=== PATIENT | male | born 1940 | race Caucasian/White ===

== ENCOUNTER 2016-11-25 13:20 | Inpatient (IN) | payer MEDICARE ==
[~2016-11-25] VITALS: Ht 180.3 cm; Wt 89.5 kg
[2016-11-25 16:51] LABS: HEMOGLOBIN 9.2 gm/dl (14.0-17.5); RED BLOOD COUNT 3.11 M/UL (4.20-5.50); WHITE BLOOD COUNT 9.6 K/UL (4.5-11.0)
[2016-11-25 17:17] LABS: BUN/CREATININE RATIO 13 (0-10)
[2016-11-26] MEDS ORDERED: ASPIRIN EC81 MG PO (04:06)
[2016-11-27 05:54] LABS: HEMOGLOBIN 8.8 gm/dl (14.0-17.5); WHITE BLOOD COUNT 8.8 K/UL (4.5-11.0)
[2016-11-29 04:34] LABS: HEMOGLOBIN 8.3 gm/dl (14.0-17.5); RED BLOOD COUNT 2.84 M/UL (4.20-5.50); WHITE BLOOD COUNT 9.6 K/UL (4.5-11.0)
[2016-11-29 13:49] LABS: HEMOGLOBIN 8.9 gm/dl (14.0-17.5)
[2016-11-29 19:15] LABS: HEMOGLOBIN 7.9 gm/dl (14.0-17.5)
[2016-11-30 01:11] LABS: HEMOGLOBIN 7.9 gm/dl (14.0-17.5)
[2016-11-30 06:44] LABS: HEMOGLOBIN 8.1 gm/dl (14.0-17.5); RED BLOOD COUNT 2.76 M/UL (4.20-5.50); WHITE BLOOD COUNT 7.6 K/UL (4.5-11.0)
[2016-12-01 04:40] LABS: HEMOGLOBIN 7.5 gm/dl (14.0-17.5); RED BLOOD COUNT 2.53 M/UL (4.20-5.50); WHITE BLOOD COUNT 8.4 K/UL (4.5-11.0)
[2016-12-01 05:12] LABS: BUN/CREATININE RATIO 31 (0-10)
[2016-12-02 04:26] LABS: HEMOGLOBIN 7.5 gm/dl (14.0-17.5); RED BLOOD COUNT 2.5 M/UL (4.20-5.50)
[2016-12-03 05:27] LABS: HEMOGLOBIN 7.1 gm/dl (14.0-17.5); RED BLOOD COUNT 2.44 M/UL (4.20-5.50); WHITE BLOOD COUNT 8.6 K/UL (4.5-11.0)
[2016-12-03 23:59] LABS: HEMOGLOBIN 7.8 gm/dl (14.0-17.5)
[2016-12-04 06:21] LABS: HEMOGLOBIN 8.3 gm/dl (14.0-17.5); RED BLOOD COUNT 2.8 M/UL (4.20-5.50); WHITE BLOOD COUNT 9.2 K/UL (4.5-11.0)
[2016-12-05 05:36] LABS: HEMOGLOBIN 8.5 gm/dl (14.0-17.5); RED BLOOD COUNT 2.85 M/UL (4.20-5.50); WHITE BLOOD COUNT 9.7 K/UL (4.5-11.0)
== END 2016-12-06 17:45 | DRG 292 ==
LOC: ER1 13:20 → ZEROF 20:26 → MED SURG 4 20:26 → M/S 20:26 → MED SURG 4 22:20 → PROG CARE 11-29 16:24 → M/S 12-02 18:18
PROVIDERS: Emergency Medicine; Family Medicine; Hospitalist; ADMIT Internal Medicine
DX: I50.23 Acute on chronic systolic (congestive) heart failure (principal); N17.9 Acute kidney failure, unspecified; K92.2 Gastrointestinal hemorrhage, unspecified; L97.319 Non-pressure chronic ulcer of right ankle with unspecified severity; D62 Acute posthemorrhagic anemia; I48.2 Chronic atrial fibrillation; I48.0 Paroxysmal atrial fibrillation; I87.8 Other specified disorders of veins; L89.322 Pressure ulcer of left buttock, stage 2; L89.312 Pressure ulcer of right buttock, stage 2; E11.9 Type 2 diabetes mellitus without complications; E78.5 Hyperlipidemia, unspecified; I27.2 Other secondary pulmonary hypertension; I07.1 Rheumatic tricuspid insufficiency; C44.42 Squamous cell carcinoma of skin of scalp and neck; C44.329 Squamous cell carcinoma of skin of other parts of face; D50.9 Iron deficiency anemia, unspecified; R53.1 Weakness; H91.90 Unspecified hearing loss, unspecified ear; R94.39 Abnormal result of other cardiovascular function study; Z60.9 Problem related to social environment, unspecified; Z79.82 Long term (current) use of aspirin; Z79.899 Other long term (current) drug therapy; Z98.890 Other specified postprocedural states
CPT/HCPCS: ECHO; 36415; 70450; 71010; 78452; 80048; 80053; 80061; 80307; 81001; 82272; 82550; 82553; 82607; 82728; 82962; 83036; 83540; 83735; 83874; 83880; 84132; 84443; 84466; 84484; 85014; 85018; 85025; 85027; 85045; 86850; 86900; 86901; 86920; 93005; 93017; 93306; 93925; 93970; 96374; 99285; A9502; G0480; J1650; J1756; J1940; J2270; J2785; J7030; J7050; P9016